=== PATIENT | female | born 1995 | race African-American/Black ===

== ENCOUNTER 2016-06-23 22:07 | Emergency (ER) | payer SELFPAY ==
[~2016-06-23] VITALS: Ht 180.3 cm; Wt 118.0 kg
[~2016-06-23 22:07] MED LIST: BACT800T5 PO
[2016-06-23 22:09] VITALS: BP 135/80; PULSE 107; RESP 16; TEMP 98.3; O2SAT 100
[2016-06-23] MEDS ORDERED: PROZ20CA11 PO (22:58)
== END 2016-06-24 01:57 | disposition left against medical advice (07) ==
LOC: NEPE 22:07
DX: R68.89 Other general symptoms and signs (principal)
CPT/HCPCS: 99281

== ENCOUNTER 2016-06-24 13:03 | Emergency (ER) | payer MEDICAID, OTHER ==
[~2016-06-24] VITALS: Ht 180.3 cm; Wt 117.7 kg
[~2016-06-24 13:03] MED LIST changes: -BACT800T5 PO; +PROZ20CA11 PO
[2016-06-24 13:10] VITALS: BP 129/83; PULSE 109; RESP 18; TEMP 99.4; O2SAT 97
[2016-06-24] MEDS ORDERED: cefTRIAXone 250 MG VIAL IM ONE (13:30)
[2016-06-24] MEDS ORDERED: AZITHROMYCIN PWD FOR SUSP 1 GM PACKET PO ONE (13:30)
[2016-06-24] MEDS ORDERED: LIDOCAINE HCL 1% 50 ML VIAL IM ONE (13:30)
[2016-06-24] MEDS ORDERED: ONDANSETRON ODT 4 MG TAB PO ONE (13:30)
[2016-06-24] MEDS ORDERED: metroNIDAZOLE 500 MG TAB PO ONE (13:30)
--- NOTE | 2016-06-24 13:33 | PD ---
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 She describes sick chunky white vaginal discharge. 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 She sexually active with one male partner. Her partner has developed greenish penile discharge and was treated for gonorrhea last night in the emergency department. Last menstrual period was 3 weeks ago. She otherwise has been feeling generally well and healthy. History Past Medical History Narrative Medical Depression : 1 Para: 1 Social History Alcohol Use: No (occ) Tobacco Use: Yes (1 PPD) Allergies-Medications (Allergen,Severity, Reaction): Coded Allergies: No Known Allergies (Verified , 06/24/16) Reported Meds & Prescriptions Reported Meds & Active Scripts Active Reported Prozac (Fluoxetine HCl) 20 Mg Cap 20 Mg PO DAILY Review of Systems Except as stated in HPI: all other systems reviewed are Neg Physical Exam Narrative GENERAL: Well-appearing 21-year-old woman, no acute distress. CARDIOVASCULAR: Regular rate and rhythm. No murmur appreciated. RESPIRATORY: No accessory muscle use. Clear to auscultation. Breath sounds equal bilaterally. GASTROINTESTINAL: Abdomen soft, non-tender, nondistended. Hepatic and splenic margins not palpable. MUSCULOSKELETAL: No obvious deformities. PELVIC: Normal external female genitalia. Thin white vaginal discharge in the vaginal vault. Some irritation. A little bit of cervical irritation around the os was some darker redness. Minimal cervical motion tenderness. No palpable uterine enlargement or adnexal masses. Data Data Last Documented VS Vital Signs Date Time Temp Pulse Resp B/P Pulse Ox O2 Delivery O2 Flow Rate FiO2 06/24/16 13:10 99.4 109 18 129/83 97 Orders Gc And Chlamydia Pcr (06/24/16 13:23) Wet Prep Profile (06/24/16 13:23) Azithromycin Powd Pack (Zithromax Powd P (06/24/16 13:30) Ceftriaxone Inj (Rocephin Inj) (06/24/16 13:30) Lidocaine 1% Inj (50 Ml) (Xylocaine 1% I (06/24/16 13:30) Metronidazole (Flagyl) (06/24/16 13:30) Ed Urine Pregnancytest Poc (06/24/16 13:23) Ondansetron Odt (Zofran Odt) (06/24/16 13:30) Labs Laboratory Tests Test 06/24/16 13:44 Clue Cells (Wet Prep) NONE SEEN Vaginal Trichomonas (Wet Prep) PRESENT Vaginal Yeast (Wet Prep) NONE SEEN MDM Medical Decision Making Medical Screen Exam Complete: Yes Emergency Medical Condition: Yes Interpretation(s) Wet prep positive for Trichomonas Differential Diagnosis Vaginitis, cervicitis, yeast infection, gonorrhea, Coumadin, Trichomonas Narrative Course Medical decision making 18 year-old woman presents to the emergency department with white vaginal discharge and follow vaginal irritation. Partner has penile discharge. The suggestive of an STD. We'll check labs, wet prep, , empiric treatment for cervicitis. 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 Any sexual partners you have should be tested and treated as well. You should not have sex until you have no symptoms, and your partners tested and treated as well. Med/Other Pt SpecificInfo: No Change to Meds Disposition: 01 DISCHARGE HOME Condition: Montana Munoz MD Jun 24, 2016 13:33
[2016-06-24 18:39] LABS: CHLAMYDIA PCR DETECTED (NOT DETECT); NEISSERIA PCR DETECTED (NOT DETECT)
== END 2016-06-24 14:22 | disposition home or self-care (01) ==
LOC: PHED 13:03
DX: N89.8 Other specified noninflammatory disorders of vagina (principal); A59.9 Trichomoniasis, unspecified; F17.210 Nicotine dependence, cigarettes, uncomplicated; Z20.2 Contact with and (suspected) exposure to infections with a predominantly sexual mode of transmission
CPT/HCPCS: 84703; 87210; 87491; 87591; 96372; 99283; J0696

== ENCOUNTER 2016-08-22 17:06 | Emergency (ER) | payer MEDICAID ==
[~2016-08-22] VITALS: Ht 348 cm; Wt 119.0 kg
[2016-08-22 17:08] VITALS: BP 124/85; PULSE 90; RESP 15; TEMP 99.4; O2SAT 99
--- NOTE | 2016-08-22 17:34 | PD ---
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 The patient has a history of gonorrhea one month ago, was treated, her sexual partner was also treated. However, the last week she's had some increasing vaginal discomfort with vaginal discharge which she describes as thick, white, clumpy, without any itching. She does note progressing symptoms of the last several days. She denies any known history of bacterial vaginosis or previous yeast infection. She does note intermittent dysuria secondary to irritation, but denies any frequency, urgency, or vaginal bleeding. Last menstrual cycle was 2 weeks ago, she is sexually active, is unsure if she could be . Symptoms are mild to moderate, no known alleviating or exacerbating factors. PFSH Past Medical History Depression: Yes Diminished Hearing: No Psychiatric: Yes ("MOOD SWINGS") Immunizations Current: Yes ?: Not LMP: 3 DAYS : 1 Para: 1 Past Surgical History Section: Yes Social History Alcohol Use: No (occ) Tobacco Use: Yes (1 PPD) Substance Use: No Allergies-Medications (Allergen,Severity, Reaction): Coded Allergies: No Known Allergies (Verified , 08/22/16) Reported Meds & Prescriptions Reported Meds & Active Scripts Active Reported Prozac (Fluoxetine HCl) 20 Mg Cap 20 Mg PO DAILY Review of Systems Except as stated in HPI: all other systems reviewed are Neg General / Constitutional: No: Fever Cardiovascular: No: Chest Pain or Discomfort Respiratory: No: Shortness of Breath Gastrointestinal: No: Nausea, Vomiting, Abdominal Pain Genitourinary: Positive: Dysuria, Dyspareunia, Discharge, Other (as noted in the history of present illness), No: Urgency, Frequency Skin: No Rash Physical Exam Narrative GENERAL: Awake, alert, pleasant 21-year-old female who appears her stated age and is in no acute respiratory distress. SKIN: Focused skin assessment warm/dry. HEAD: Atraumatic. Normocephalic. EYES: Pupils equal and round. No scleral icterus. No injection or drainage. ENT: No nasal bleeding or discharge. Mucous membranes pink and moist. NECK: Trachea midline. No JVD. GASTROINTESTINAL: Abdomen soft, non-tender, nondistended. Back: No CVA tenderness Genitourinary: The exam was performed in the presence of a female nurse. External examination reveals small MOD of white, clumpy, vaginal discharge at the introitus with an amine smell. Introitus vaginal ro on speculum examination are slightly irritated, erythematous, with white vaginal discharge on the vaginal ro. Cervix is closed. No significant adnexal tenderness or cervical motion tenderness. MUSCULOSKELETAL: No obvious deformities. No clubbing. No cyanosis. No edema. NEUROLOGICAL: Awake and alert. No obvious cranial nerve deficits. Motor grossly within normal limits. Normal speech. PSYCHIATRIC: Appropriate mood and affect; insight and judgment normal. Data Data Last Documented VS Vital Signs Date Time Temp Pulse Resp B/P Pulse Ox O2 Delivery O2 Flow Rate FiO2 08/22/16 17:08 99.4 90 15 124/85 99 Orders Gc And Chlamydia Pcr (08/22/16 17:21) Wet Prep Profile (08/22/16 17:21) Urinalysis - C+S If Indicated (08/22/16 17:21) Ed Urine Pregnancytest Poc (08/22/16 17:21) Labs Laboratory Tests Test 08/22/16 17:30 Urine pH 6.0 Urine Protein NEG mg/dL Urine Glucose (UA) NEG mg/dL Urine Ketones NEG mg/dL Urine Occult Blood NEG Urine Nitrite NEG Urine Bilirubin NEG Urine Leukocyte Esterase SMALL Clue Cells (Wet Prep) PRESENT Vaginal Trichomonas (Wet Prep) NONE SEEN Vaginal Yeast (Wet Prep) NONE SEEN MDM Medical Decision Making Medical Screen Exam Complete: Yes Emergency Medical Condition: Yes Medical Record Reviewed: Yes Interpretation(s) Laboratory Tests Test 08/22/16 17:30 Urine pH 6.0 Urine Protein NEG mg/dL Urine Glucose (UA) NEG mg/dL Urine Ketones NEG mg/dL Urine Occult Blood NEG Urine Nitrite NEG Urine Bilirubin NEG Urine Leukocyte Esterase SMALL Clue Cells (Wet Prep) PRESENT Vaginal Trichomonas (Wet Prep) NONE SEEN Vaginal Yeast (Wet Prep) NONE SEEN Differential Diagnosis Differential diagnosis includes vaginitis, cervicitis, PID, Trichomonas, bacterial vaginosis, yeast infection, gonorrhea, or chlamydia. Narrative Course A UA was sent to lab. Bedside UA test was obtained, was negative. A pelvic examination was completed in the presence of a female nurse. Wet prep and gonorrhea/chlamydia were sent to lab. Wet prep reveals clue cells, therefore, patient will be treated with Flagyl twice a day for one week. She is advised to follow-up with [facility] for outpatient Pap smear. Return if symptoms worsen or progress. Diagnosis Primary Impression: BV (bacterial vaginosis) Referrals: [facility] Patient Instructions: General Instructions Additional Instructions: Flagyl as directed. No drinking alcohol on Flagyl. Follow up at the [facility] now for outpatient Pap smear. Return if symptoms worsen or progress. Med/Other Pt SpecificInfo: Prescription(s) given Scripts Metronidazole (Flagyl)500 Mg [id number] Mg PO BID 7 Days Ref 0 Prov:Gilbert Elam MD 08/22/16 Disposition: 01 DISCHARGE HOME Condition: Stable Gilbert Elam MD August 22, 2016 17:34
[2016-08-22 17:44] LABS: BLOOD, URINE NEG (NEG); GLUCOSE,URINE NEG (NEG); KETONE, URINE NEG (NEG); NITRITE,URINE NEG (NEG)
[2016-08-22] MEDS ORDERED: METR-1 PO (18:00)
[2016-08-22 18:10] LABS: METHOD OF COLLECTION CLEAN CATCH; URINE COLOR YELLOW (YELLW/STRAW)
[2016-08-22 18:11] LABS: BACTERIA, URINE FEW /hpf; COMMENT (UR) CULTURE INDICATED; COMMENT2 (UR) MUCOUS PRESENT; CULTURE IF INDICATED CULTURE INDICATED
[2016-08-22 23:08] LABS: CHLAMYDIA PCR NOT DETECTED (NOT DETECT); NEISSERIA PCR NOT DETECTED (NOT DETECT)
== END 2016-08-22 18:06 | disposition home or self-care (01) ==
LOC: PHED 17:06
DX: N76.0 Acute vaginitis (principal); F32.9 Major depressive disorder, single episode, unspecified; F17.210 Nicotine dependence, cigarettes, uncomplicated; Z86.19 Personal history of other infectious and parasitic diseases
CPT/HCPCS: 81001; 84703; 87086; 87210; 87491; 87591; 99283

== ENCOUNTER 2016-09-01 16:34 | Emergency (ER) | payer MEDICAID ==
[~2016-09-01] VITALS: Ht 180.3 cm; Wt 114.0 kg
[~2016-09-01 16:34] MED LIST changes: +METR-1 PO
[2016-09-01 16:35] VITALS: BP 133/76; PULSE 97; RESP 18; TEMP 98.1; O2SAT 99
--- NOTE | 2016-09-01 16:55 | PD ---
Physical Exam Date Seen by Provider: September 01, 2016 Time Seen by Provider: 16:53 Narrative 21 yo female here for vaginal itching and discharge. No pain. Was just diagnosed with BV. Compliant with flagyl. here to get checked for new discharge and symptoms. Vitals sign stable. Patient awaiting bed placement. Data Data Last Documented VS Vital Signs Date Time Temp Pulse Resp B/P Pulse Ox O2 Delivery O2 Flow Rate FiO2 09/01/16 16:35 98.1 97 18 133/76 99 MDM Medical Record Reviewed: Yes Supervised Visit with FRANCINE: Adrien Golden September 01, 2016 16:55
[2016-09-01] MEDS ORDERED: DIFL150T PO (17:41)
--- NOTE | 2016-09-01 17:42 | PD ---
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 Patient states that she was seen here 10 days ago in our emergency department with the same complaint and was diagnosed with bacterial vaginosis. States that she took the Flagyl with out any improvement of symptoms. States that her symptoms actually worsened over the past week. States that she has thick "cottage cheese" like vaginal discharge. She states that 10 days ago when she was here she was negative for gonorrhea and chlamydia, she has not been sexually active since this test was performed. She states that she has changed body wash and has been using Dial antibacterial soap over the past several weeks when she previously used Dove. She denies any fever, chills, nausea, vomiting, abdominal pain, dysuria, hematuria. Denies , last menstrual period 2 weeks ago. No other complaints. PFSH Past Medical History Medical History: Denies Significant Hx Depression: Yes Diminished Hearing: No Genitourinary: Yes (bactirial vaginatis ) Psychiatric: Yes ("MOOD SWINGS") Immunizations Current: Yes ?: Unknown LMP: august 2016 : 1 Para: 1 Past Surgical History Surgical History: No Previous Surgery Abdominal Surgery: Yes ( ) Section: Yes Social History Alcohol Use: No Tobacco Use: Yes (trying to quit, smoked 1 cig today) Substance Use: No Allergies-Medications (Allergen,Severity, Reaction): Coded Allergies: No Known Allergies (Verified , 09/01/16) Reported Meds & Prescriptions Reported Meds & Active Scripts Active Diflucan (Fluconazole) 150 Mg Tab 150 Mg PO ONCE Flagyl (Metronidazole) 500 Mg Tab 500 Mg PO BID 7 Days Reported Prozac (Fluoxetine HCl) 20 Mg Cap 20 Mg PO DAILY Review of Systems Except as stated in HPI: all other systems reviewed are Neg Physical Exam Narrative GENERAL: Well-nourished and well-developed pleasant patient in no acute distress who is nontoxic appearing. SKIN: Warm and dry. HEAD: Normocephalic and atraumatic. EYES: No injection, drainage, or hyphema noted. PERRLA. EOMI. ENT: No nasal drainage noted. Oropharynx is clear. NECK: Supple and the trachea is midline. CARDIOVASCULAR: Regular rate and rhythm. RESPIRATORY: Breath sounds are equal bilaterally with no accessory muscle use, wheezing, rhonchi, or crackles. GASTROINTESTINAL: Abdomen is soft, non-tender, and nondistended. PELVIC: Patient declined. MUSCULOSKELETAL: No obvious deformities, swelling, cyanosis, or ecchymosis is present throughout the upper and lower extremities. Patient has full range of motion without any signs of neurovascular compromise. NEUROLOGICAL: Awake, alert, and oriented. Normal speech and gait. Cranial nerves are grossly intact. Data Data Last Documented VS Vital Signs Date Time Temp Pulse Resp B/P Pulse Ox O2 Delivery O2 Flow Rate FiO2 09/01/16 16:35 98.1 97 18 133/76 99 MDM Medical Decision Making Medical Screen Exam Complete: Yes Emergency Medical Condition: Yes Differential Diagnosis Yeast infection versus bacterial vaginosis versus dermatitis versus STI Narrative Course 21-year-old female presents to the emergency department for evaluation of vaginal itching with thick white discharge. Patient is afebrile, vital signs are stable. She was seen here 10 days ago and her wet prep was positive for clue cells and gonorrhea and Chlamydia was negative. She was treated with Flagyl. States her symptoms got worse. She is also recently changed to start using an antibacterial body wash. The patient is declining a pelvic examination as she "just had one" last week. I will treat her empirically for yeast infection based on history and complaints. I discussed with her that she should follow-up with a cardiology technologist if her symptoms persist. Patient verbalizes understanding and agreement with treatment plan. Diagnosis Primary Impression: Vulvovaginitis Referrals: [employer] Patient Instructions: General Instructions, Vulvovaginal Candidiasis (ED) Additional Instructions: Take Diflucan once today. If symptoms persist you can take a second tablet of Diflucan 72 hours after first dose. Follow-up with a cardiology technologist. Return to the ED for any acute worsening of symptoms. Med/Other Pt SpecificInfo: Prescription(s) given Scripts Fluconazole (Diflucan)150 Mg [id number] Mg PO ONCE #1 TAB Ref 1 Prov:Cayla Cárdenas MD 09/01/16 Disposition: 01 DISCHARGE HOME Condition: Stable Twila Chua September 01, 2016 17:42
== END 2016-09-01 17:58 | disposition home or self-care (01) ==
LOC: NEPD 16:34
DX: N76.0 Acute vaginitis (principal); B37.3 Candidiasis of vulva and vagina; Z72.0 Tobacco use; Z86.59 Personal history of other mental and behavioral disorders; Z87.448 Personal history of other diseases of urinary system
CPT/HCPCS: 99283

== ENCOUNTER 2017-02-26 13:56 | Emergency (ER) | payer SELFPAY ==
[~2017-02-26] VITALS: Ht 180.3 cm; Wt 130.0 kg
[~2017-02-26 13:56] MED LIST changes: +DIFL150T PO
[2017-02-26 13:57] VITALS: BP 107/60; PULSE 85; RESP 16; TEMP 98.3; O2SAT 98
--- NOTE | 2017-02-26 14:24 | PD ---
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 She also reports that she's had a foul odor from her vagina. She was treated earlier in the year for sexually transmitted disease and she is concerned that may have come back. She is not followed up with a state superintendent of schools [facility] Past Medical History Depression: Yes Diminished Hearing: No Genitourinary: Yes (bactirial vaginatis ) Psychiatric: Yes ("MOOD SWINGS") Immunizations Current: Yes ?: Unknown : 1 Para: 1 Past Surgical History Abdominal Surgery: Yes ( ) Section: Yes Social History Alcohol Use: No Tobacco Use: Yes (trying to quit, smoked 1 cig today) Substance Use: No Allergies-Medications (Allergen,Severity, Reaction): Coded Allergies: No Known Allergies (Verified Adverse Reaction, Unknown, 02/26/17) Reported Meds & Prescriptions Reported Meds & Active Scripts Active No Active Prescriptions or Reported Medications Review of Systems Except as stated in HPI: all other systems reviewed are Neg Physical Exam Narrative GENERAL:Well appearing, no acute distress SKIN: Focused skin assessment warm and dry. HEAD: Atraumatic. Normocephalic. EYES: Pupils equal and round. No injection or drainage. ENT: Moist mucous membranes NECK: Trachea midline. CARDIOVASCULAR: Regular rate and rhythm. No murmur appreciated. RESPIRATORY: Clear to auscultation. Breath sounds equal bilaterally. GASTROINTESTINAL: Abdomen soft, non-tender, nondistended. MACHINIST OUTSIDE: Mild amount of dark blood in the vault with no obvious discharge, no cervical motion or adnexal tenderness. Fishy odor from the vagina. MUSCULOSKELETAL: No obvious deformities. NEUROLOGICAL: Awake and alert. No obvious cranial nerve deficits. Moving all extremities. PSYCHIATRIC: Appropriate mood and affect; insight and judgment normal. Data Data Last Documented VS Vital Signs Date Time Temp Pulse Resp B/P (MAP) Pulse Ox O2 Delivery O2 Flow Rate FiO2 02/26/17 13:57 98.3 85 16 107/60 (76) 98 Orders Orders Wet Prep Profile (02/26/17 14:21) Gc And Chlamydia Pcr (02/26/17 14:21) Ed Urine Pregnancytest Poc (02/26/17 14:21) Labs Laboratory Tests Test 02/26/17 14:25 Clue Cells (Wet Prep) NONE SEEN Vaginal Trichomonas (Wet Prep) NONE SEEN Vaginal Yeast (Wet Prep) NONE SEEN MDM Medical Decision Making Medical Screen Exam Complete: Yes Emergency Medical Condition: Yes Interpretation(s) [id number] is negative Wet prep is negative Differential Diagnosis Bacterial vaginosis, miscarriage, fibroid uterus, dysfunctional uterine bleeding Narrative Course This is a 21-year-old female who presents to the emergency department with 1 month of vaginal bleeding. She's not having any lightheadedness or dizziness and her flow has not been heavy. She also reports an odor in her vagina. She doesn't have a state superintendent of schools. test was negative. I told her we are limited in the workup we can do for vaginal bleeding in the emergency Department. I advised she follow-up with his [facility]. I also suspect her odor is secondary to vaginosis. She'll be prescribed Flagyl. Patient will be discharged home. Diagnosis Primary Impression: Dysfunctional uterine bleeding Additional Impression: Vaginal odor Patient Instructions: General Instructions Additional Instructions: Heavy bleeding can be caused by many things including: - One of your ovaries not releasing an egg during one or more months - Growths in the uterus called fibroids - A bleeding disorder that prevents your blood from clotting normally - Side effects of some medicines, such as some types of control or blood thinners - A problem with your thyroid (a gland that makes hormones) Return to the emergency department if you: Need to use both tampons and pads at the same time because you are bleeding so much Need to change your pad or tampon during the night Or are feeling lightheaded, weak, dizzy, have chest pain, shortness of breath or are having difficulty exerting yourself Med/Other Pt SpecificInfo: Prescription(s) given Scripts Metronidazole (Flagyl) 500 Mg Tab 500 MG PO BID for Infection for 7 Days, #14 TAB 0 Refills Prov: Mai Schilling MD 02/26/17 Disposition: 01 DISCHARGE HOME Condition: Stable Mai Schilling MD Feb 26, 2017 14:24
[2017-02-26] MEDS ORDERED: METR-1 PO (15:00)
[2017-02-26 15:11] VITALS: BP 110/65
[2017-02-26 19:55] LABS: CHLAMYDIA PCR NOT DETECTED (NOT DETECT); NEISSERIA PCR NOT DETECTED (NOT DETECT)
== END 2017-02-26 15:13 | disposition home or self-care (01) ==
LOC: PHED 13:56
DX: N93.8 Other specified abnormal uterine and vaginal bleeding (principal)
CPT/HCPCS: 84703; 87210; 87491; 87591; 99283